=== PATIENT | female | born 1990 | race Caucasian/White ===

== ENCOUNTER 2022-11-10 15:57 | Inpatient (IN) | payer SELFPAY ==
[~2022-11-10] VITALS: Ht 157.5 cm; Wt 58.1 kg
[2022-11-10] MEDS ORDERED: CEFTRIAXONE 1 G in IV DEXTROSE 5% 50 ML IV ONE (16:15)
[2022-11-10 17:24] LABS: HEMATOCRIT 48.9 % (31.2-41.9); MEAN CORPUSCULAR HEMOGLOBIN 30.4 uug (24.7-32.8); MEAN CORPUSCULAR VOLUME 90.8 fL (75.5-95.3); PLATELET COUNT (AUTO) 322 K/uL (179-408)
[2022-11-10] MEDS ORDERED: CEFTRIAXONE /D5W 50ML IVPB **ER PYXIS IV ONE (17:24)
[2022-11-10 17:34] LABS: CREATININE 1.1 mg/dL (0.6-1.3); POTASSIUM 4.1 mmol/L (3.5-5.1)
[2022-11-10 17:40] LABS: *BILIRUBIN,URIN NEGATIVE (NEGATIVE); *BLOOD, URINE NEGATIVE (NEGATIVE); *CLARITY,URINE CLEAR (CLEAR); *COLOR,URINE YELLOW (YELLOW); *KETONES,URINE TRACE (NEGATIVE); LEUKOCYTE ESTERASE ,URINE NEGATIVE (NEGATIVE); NITRITE, URINE POSITIVE (NEGATIVE); UGLUCOSE NEGATIVE (NEGATIVE)
[2022-11-10 17:46] LABS: BILIRUBIN,TOTAL 0.5 mg/dL (0.2-1.0); TOTAL PROTEIN, SERUM 8.8 g/dL (6.4-8.2)
[2022-11-10 18:00] LABS: WBC,URINE NONE SEEN /HPF (0-3)
[2022-11-10 18:01] LABS: BACTERIA,URINE NONE SEEN /HPF (NONE SEEN); RBC,URINE 0-3 /HPF (0-3); SQUAMOUS EPITHELIAL CELL,UR FEW /HPF (NONE SEEN)
[2022-11-10] MEDS ORDERED: MAGNESIUM HYDROXIDE 30 ML LIQUID UDC PO PRN (18:15)
[2022-11-10] MEDS ORDERED: ONDANSETRON 4 MG/2 ML VIAL IV PRN (18:15)
[2022-11-10] MEDS ORDERED: ACETAMINOPHEN 325 MG TABLET PO PRN (18:15)
[2022-11-10] MEDS: ENOXAPARIN SODIUM 40 MG/0.4 ML DISP.SYRIN SQ SCH (22:19)
[2022-11-10 22:27] VITALS: BP 105/68
[2022-11-10] MEDS: HYDROCODONE/APAP 5-325MG TABLET PO PRN (22:30)
[2022-11-11 00:45] VITALS: BP 102/71
[2022-11-11 05:52] VITALS: BP 104/59
[2022-11-11] MEDS: PANTOPRAZOLE SODIUM 40 MG TABLET.DR PO SCH (06:34)
[2022-11-11 07:20] LABS: HEMATOCRIT 42.1 % (31.2-41.9); MEAN CORPUSCULAR HEMOGLOBIN 30.7 uug (24.7-32.8); PLATELET COUNT (AUTO) 253 K/uL (179-408)
[2022-11-11 07:48] LABS: CREATININE 1.1 mg/dL (0.6-1.3); MAGNESIUM 1.8 mg/dL (1.8-2.4); PHOSPHOROUS 3.1 mg/dL (2.5-4.9); POTASSIUM 3.5 mmol/L (3.5-5.1)
[2022-11-11 11:44] VITALS: BP 106/76
[2022-11-11] MEDS: FUROSEMIDE 40 MG/4 ML VIAL IV SCH ×2 (12:09→20:20)
[2022-11-11] MEDS: HYDROCODONE/APAP 5-325MG TABLET PO PRN (14:27)
[2022-11-11 16:00] VITALS: BP 98/66
[2022-11-11] MEDS: CEFTRIAXONE 1 G in IV DEXTROSE 5% 50 ML IV SCH (17:00)
[2022-11-11] MEDS ORDERED: TORS20TA3 PO (18:35)
[2022-11-11 19:19] VITALS: BP 96/64
[2022-11-11] MEDS: ENOXAPARIN SODIUM 40 MG/0.4 ML DISP.SYRIN SQ SCH (20:09)
[2022-11-12 04:42] VITALS: BP 98/52
[2022-11-12] MEDS: PANTOPRAZOLE SODIUM 40 MG TABLET.DR PO SCH (06:07)
[2022-11-12 09:52] VITALS: BP 104/71
[2022-11-12] MEDS: FUROSEMIDE 40 MG/4 ML VIAL IV SCH ×2 (09:54→21:00)
[2022-11-12] MEDS: HYDROCODONE/APAP 5-325MG TABLET PO PRN (10:03)
[2022-11-12 11:43] VITALS: BP 99/63
[2022-11-12 16:00] VITALS: BP 90/58
[2022-11-12] MEDS: CEFTRIAXONE 1 G in IV DEXTROSE 5% 50 ML IV SCH (17:08)
[2022-11-12 20:05] VITALS: BP 96/59
[2022-11-12] MEDS: ENOXAPARIN SODIUM 40 MG/0.4 ML DISP.SYRIN SQ SCH (20:24)
[2022-11-13] MEDS: PANTOPRAZOLE SODIUM 40 MG TABLET.DR PO SCH (06:06)
[2022-11-13] MEDS: HYDROCODONE/APAP 5-325MG TABLET PO PRN ×2 (08:30→12:32)
[2022-11-13] MEDS ORDERED: TORS20TA3 PO (11:54)
== END 2022-11-13 14:30 | disposition home or self-care (01) | DRG 689 ==
LOC: ER 15:57 → TELE3 18:00 → MEDSURG3 11-11 22:59
PROVIDERS: ADMIT Nurse Practitioner Acute Care; ATTEND Nurse Practitioner Acute Care
DX: N39.0 Urinary tract infection, site not specified (principal); I50.33 Acute on chronic diastolic (congestive) heart failure; Z95.2 Presence of prosthetic heart valve; Z95.810 Presence of automatic (implantable) cardiac defibrillator; Z88.1 Allergy status to other antibiotic agents; N18.9 Chronic kidney disease, unspecified; Z20.822 Contact with and (suspected) exposure to COVID-19; B96.89 Other specified bacterial agents as the cause of diseases classified elsewhere
CPT/HCPCS: 36415; 71045; 83735; 84100; 84484; 85025; 85610; 87040; 93005; 93307; A4663; G0378; J0696; J1650; J1940